=== PATIENT | male | born 1990 | race Hispanic/Latino ===

== ENCOUNTER 2019-07-12 15:43 | Emergency (ER) | payer BC, MEDICARE ==
[~2019-07-12 15:43] MED LIST: EPINEPHrine 1 MG/10 ML SYRINGE ONE; SODIUM BICARB 8.4% 50 MEQ/50 ML SYRINGE IV ONE
[2019-07-12] MEDS ORDERED: NORepinephrine/NS 4 MG-250 ML 4 MG/250 ML BAG IV ONE (15:57)
[2019-07-12] MEDS ORDERED: MORPHINE 4 MG/1 ML INJ ONE (16:42)
[2019-07-12] MEDS ORDERED: SODIUM CHLORIDE 0.9% 1000 ML 1,000 ML IV ONE (16:46)
[2019-07-12] MEDS ORDERED: MORPHINE 4 MG/1 ML INJ IV ONE (16:48)
--- NOTE | 2019-07-12 17:01 | XRay Report ---
CHEST 1 VIEW 07/12/2019 4:15 PM INDICATION / CLINICAL INFORMATION: Altered Mental Status. COMPARISON: None available. FINDINGS: SUPPORT DEVICES: ET tube in place with the tip projecting about 4 cm above the indira. HEART / MEDIASTINUM: No significant abnormality. LUNGS / PLEURA: Chronic appearing interstitial prominence in the left upper lobe. No significant effu becca. No pneumothorax. ADDITIONAL FINDINGS: No significant additional findings. IMPRESSION: 1. No definite acute findings. Chronic appearing interstitial prominence/scarring in the left upper l carie. Signer Name: Nixon Schaefer MD Signed: 07/12/2019 4:57 PM Workstation Name: [id number]
--- NOTE | 2019-07-12 17:05 | Emergency Department Report ---
ED CPR HPI - General Chief Complaint: Cardiac Arrest/CPR Stated Complaint: CARDIAC ARREST Time Seen by Provider: 07/12/19 16:45 Source: family, EMS (Verbal report received from emergency medical services. EMS documentation not available at time of chart dictation ), RN notes reviewed Mode of arrival: Stretcher Limitations: Altered Mental Status, Physical Limitation - History of Present Illness Initial Comments: The patient is a 28-year-old gentleman. The patient is not known to myself previously. The patient is brought to the hospital by emergency medical services for out of hospital cardiac arrest. Upon arrival to the emergency room, the patient is pulseless and apneic, with a Salo airway placed by EMS, receiving active CPR. EMS verbally states that the patient may have had a seizure, had difficulty breathing, and arrested in front of them. EMS estimates approximately 12 minutes of transport time to arrive to the emergency room for first medical contact. The patient did not have a shockable rhythm at any point in time. Upon arrival to the emergency room, patient has a GCS of 3, has conjunctival hemorrhage, pupils are fixed and dilated, do not react to light, and the patient is found to be dusky and blue. He was intubated by myself. He had aggressive CPR performed. Return of spontaneous circulation was obtained. He was started on norepinephrine. Bedside cardiac ultrasound showed what appeared to be clot formation in the right ventricle and right atrium. No large pericardial effusion was noted. Patient lost pulses multiple times while in the emergency room. A central line was attempted using typical sterile technique the right internal jugular vein, but aborted secondary to inability to pass a guidewire. Bilateral femoral ultrasound suggested clot in the femoral vein. Family came to the bedside. Explained patient's poor neurologic prognosis, as the family arrived after approximately 1 hour of patient receiving aggressive resuscitation here in the emergency room. His family has directed that the patient is to be a DO NOT RESUSCITATE, DO NOT INTUBATE. They are amenable initially to fluids, morphine, antibiotics, laboratory studies and diagnostics. They were also amenable to CT scan of the brain and CT scan of the chest, but were in agreement to withhold systemic anticoagulation and thrombolysis given unknown presence of intracranial bleeding. However, shortly thereafter, the patient began to develop bradycardia, and lost pulses. Family is still at the bedside, and they are amenable to a terminal extubation, with morphine for symptom control and pain control. Conversation witnessed by multiple nurses, include Misael Szymanski and Ras Galindo MD Complaint: stopped breathing -: minute(s) Place: home AED Applied by Bystander/Class 1 Owner Operator: No Shock Advised: No Initial Findings in the Field: agonal, PEA Associated Injuries: No Associated Symptoms: shortness of breath Treatments Prior to Arrival: other airway device, chest compressions, epinephrine mgs # (3) ED Review of Systems ROS: Stated complaint: CARDIAC ARREST Other details as noted in HPI Comment: Unobtainable due to pts medical conditions ED Physical Exam - General Limitations: Altered Mental Status, Physical Limitation General appearance: obtunded, other (GCS of 3) - Eye Eye exam: Present: other (Pupils fixed and dilated. They do not react to light. Conjunctival hemorrhages are noted) - ENT ENT exam: Present: other (Secretions noted in oropharynx). Absent: normal external ear exam (Ears are blue and dusky) - Neck Neck exam: Present: normal inspection - Respiratory Respiratory exam: Present: other (No breath sounds unless [id number] ventilation is applied). Absent: normal lung sounds bilaterally, wheezes, rales, rhonchi, stridor - Cardiovascular Cardiovascular Exam: Present: other (Patient is pulseless) - GI/Abdominal GI/Abdominal exam: Present: other (Scaphoid abdomen) - Rectal Rectal exam: Present: normal inspection - External exam: Present: normal external exam - Extremities Exam Extremities exam: Present: full ROM. Absent: normal capillary refill (Nailbeds are white.) - Back Exam Back exam: Absent: tenderness, paraspinal tenderness - Neurological Exam Neurological exam: Present: altered, other (GCS of 3) - Psychiatric Psychiatric exam: Present: other (Nonverbal) - Skin Skin exam: Present: pallor, other (Pale dusky skin.) ED Medical Decision Making - Radiology Data Radiology results: image reviewed interpreted by me: X-ray of the chest, reviewed by myself, shows no obvious pneumothorax, appropriate placement of endotracheal tube. - Medical Decision Making Differential diagnosis, including but not limited to: Intracranial hemorrhage, status epilepticus, massive pulmonary embolism, sepsis, bacteremia, viremia, acute coronary syndrome 28-year-old male who presents with out of hospital cardiac arrest, prolonged pulseless time, demonstrating evidence of anoxic brain injury, has poor baseline neurologic function, not a candidate for empiric anticoagulation or thrombolysis given unknown presence of intracranial hemorrhage, unfortunately, presenting in cardiac arrest. His family was at the bedside for the majority of his resuscitation, and after careful assessment of their goals of care, they have requested DO NOT RESUSCITATE, pain medicine/symptom control, and de-escalation of therapy. I did offer the family a diagnostic work-up, however, the patient unfortunately . Critical Care Time: Yes Critical care time in (mins) excluding proc time.: 60 Critical care attestation.: If time is entered above; I have spent that time in minutes in the direct care of this critically ill patient, excluding procedure time. ED Disposition Clinical Impression: Cardiac arrest Disposition: DC-20 Is pt being admited?: No Does the pt Need Aspirin: No Condition: Undetermined
[2019-07-12] MEDS ORDERED: NORepinephrine/NS 4 MG-250 ML 4 MG/250 ML BAG IV SCH (20:00)
== END 2019-07-12 19:17 ==
LOC: ED 15:43
DX: I46.9 Cardiac arrest, cause unspecified (principal)
CPT/HCPCS: 31500; 71045; 82962; 94002; 96374; 99291; J0171; J2270